=== PATIENT | female | born 1995 | race Hispanic/Latino ===

== ENCOUNTER 2024-09-27 19:38 | Emergency (ER) | payer OTHER ==
[~2024-09-27] VITALS: Ht 157.5 cm; Wt 70.3 kg
[2024-09-27 19:50] VITALS: PULSE 67; RESP 18; TEMP 98.8
[2024-09-27 20:52] VITALS: BP 132/69; O2SAT 99
== END 2024-09-27 20:40 | disposition home or self-care (01) ==
LOC: FSED 19:47
DX: S92.422A Displaced fracture of distal phalanx of left great toe, initial encounter for closed fracture (principal); W20.8XXA Other cause of strike by thrown, projected or falling object, initial encounter; Y92.89 Other specified places as the place of occurrence of the external cause; J44.9 Chronic obstructive pulmonary disease, unspecified
CPT/HCPCS: 99284